=== PATIENT | female | born 1995 ===

== ENCOUNTER 2017-11-03 00:03 | Emergency (ER) | payer SELFPAY ==
[2017-11-03 02:49] LABS: Basophils # (Auto) 0.1 K/mm3 (0.0-0.1); Basophils % (Auto) 0.5 % (0.0-1.8); Eosinophils # (Auto) 0.1 K/mm3 (0.0-0.4); Eosinophils % (Auto) 0.7 % (0.0-4.3); Hematocrit 39.2 % (30.3-42.9); Hemoglobin 13.3 gm/dl (10.1-14.3); Lymphocytes # (Auto) 2.5 K/mm3 (1.2-5.4); Lymphocytes % (Auto) 17.4 % (13.4-35.0); Mean Corpuscular HGB Conc 34 % (30-34); Mean Corpuscular Hemoglobin 28 pg (28-32); Mean Corpuscular Volume 84 fl (79-97); Monocytes # (Auto) 0.8 K/mm3 (0.0-0.8); Monocytes % (Auto) 5.6 % (0.0-7.3); Platelet Count 347 K/mm3 (140-440)
[2017-11-03 03:09] LABS: Alanine Aminotransferase 9 units/L (7-56); Albumin 3.9 g/dL (3.9-5); BUN/Creatinine Ratio 13; Blood Urea Nitrogen 8 mg/dL (7-17); Calcium 8.5 mg/dL (8.4-10.2); Hemolysis Index 1
[2017-11-03] MEDS ORDERED: XYLOCAINE 2% INFILTRATI ONE (04:10)
[2017-11-03] MEDS ORDERED: TRIPLE ANTIBIOTIC TP ONE (04:10)
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
[2017-11-03] MEDS ORDERED: XYLOCAINE 1% 20 mL ONE (04:14)
[2017-11-03] MEDS ORDERED: XYLOCAINE 1% 20 mL INFILTRATI ONE (04:18)
[2017-11-03 05:36] VITALS: BP 130/66
== END 2017-11-03 05:24 | disposition home or self-care (01) ==
LOC: ED 00:03
DX: S01.112A Laceration without foreign body of left eyelid and periocular area, initial encounter (principal); F17.200 Nicotine dependence, unspecified, uncomplicated; Y08.89XA Assault by other specified means, initial encounter; Y93.89 Activity, other specified; Y99.8 Other external cause status; Y92.89 Other specified places as the place of occurrence of the external cause
CPT/HCPCS: 36415; 80053; 84703; 85025; A6250